=== PATIENT | male | born 1985 | race African-American/Black ===

== ENCOUNTER 2020-03-07 22:55 | Emergency (ER) | payer SELFPAY ==
[~2020-03-07] VITALS: Ht 185.4 cm; Wt 136.0 kg
[2020-03-07 22:55] VITALS: BP 181/105
[2020-03-07] MEDS ORDERED: methylPREDNISolone SOD SUCC PF 125 MG/2 ML VIAL. IM ONE (23:30)
[2020-03-07] MEDS ORDERED: diphenhydrAMINE 50 MG/ML VIAL IM ONE (23:30)
[2020-03-07] MEDS ORDERED: CEPHALEXIN 250 MG CAPSULE PO ONE (23:30)
[2020-03-07] MEDS ORDERED: KETOROLAC 60 MG/2 ML VIAL. IM ONE (23:30)
[2020-03-07] MEDS ORDERED: SMZ/TMP 800/160MG TABLET. PO ONE (23:30)
[2020-03-07] MEDS ORDERED: CEPH-264 PO (23:58)
[2020-03-07] MEDS ORDERED: SULF1TAB24 PO (23:58)
--- NOTE | 2020-03-07 23:59 | PHYS DOC ---
Past History Past Medical History: No Pertinent History Alcohol Use: Occasionally General Adult EDM: Chief Complaint: INSECT BITE HPI: HPI: Patient is a 34-year-old male who presented to ER today for evaluation of right elbow pain and swelling. He noticed about 4 days ago. Patient works as a branch coordinator, mowing lawn, woke up on Thursday morning noted a lesion on his right elbow, with swelling and pain. Patient denies any injury, no fever. Patient said the swelling got worse so he came in tonight. Patient denies any history of diabetes. Review of Systems: Review of Systems: Constitutional: Denies fever or chills Eyes: Denies change in visual acuity HENT: Denies nasal congestion or sore throat Respiratory: Denies cough or shortness of breath Cardiovascular: Denies chest pain or edema GI: Denies abdominal pain, nausea, vomiting, bloody stools or diarrhea : Denies dysuria Musculoskeletal: Denies back pain, positive for right elbow pain and swelling. Integument: Denies rash Neurologic: Denies headache, focal weakness or sensory changes Endocrine: Denies polyuria or polydipsia Lymphatic: Denies swollen glands Psychiatric: Denies depression or anxiety Heart Score: Risk Factors: Risk Factors: DM, Current or recent (<one month) smoker, HTN, HLP, family history of CAD, obesity. Risk Scores: Score 0 - 3: 2.5% MACE over next 6 weeks - Discharge Home Score 4 - 6: 20.3% MACE over next 6 weeks - Admit for Clinical Observation Score 7 - 10: 72.7% MACE over next 6 weeks - Early Invasive Strategies Current Medications: Current Meds: Current Medications Medications (Trade) Dose Ordered Sig/[place] Start Time Stop Time Status Last Admin Dose Admin Cephalexin HCl (Keflex) 1,000 mg 1X ONCE 03/07/20 23:30 03/07/20 23:31 DC 03/07/20 23:30 1,000 MG Diphenhydramine HCl (Benadryl) 50 mg 1X ONCE 03/07/20 23:30 03/07/20 23:31 DC 03/07/20 23:30 50 MG Ketorolac Tromethamine (Toradol Im) 60 mg 1X ONCE 03/07/20 23:30 03/07/20 23:31 DC 03/07/20 23:30 60 MG Methylprednisolone Sodium Succinate (SOLU-Medrol 125MG VIAL) 125 mg 1X ONCE 03/07/20 23:30 03/07/20 23:31 DC 03/07/20 23:30 125 MG Trimethoprim/ Sulfamethoxazole (Bactrim Ds) 1 tab 1X ONCE 03/07/20 23:30 03/07/20 23:31 DC 03/07/20 23:30 1 TAB Allergies: Allergies: Allergies Coded Allergies Type Severity Reaction Last Updated Verified No Known Drug Allergies 03/07/20 No Physical Exam: PE: Constitutional: Well developed, well nourished, no acute distress, non-toxic appearance. [] HENT: Normocephalic, atraumatic, bilateral external ears normal, oropharynx moist, no oral exudates, nose normal. [] Eyes: PERRLA, EOMI, conjunctiva normal, no discharge. [] Neck: Normal range of motion, no tenderness, supple, no stridor. [] Cardiovascular:Heart rate regular rhythm, no murmur [] Lungs & Thorax: Bilateral breath sounds clear to auscultation [] Abdomen: Bowel sounds normal, soft, no tenderness, no masses, no pulsatile masses. [] Skin: Warm, dry, no erythema, no rash. [] Back: No tenderness, no CVA tenderness. [] Extremities: The area of the back right elbow is swollen and tender with erythema, there is a necrotic lesion, no purulent discharge noted. Patient can move his right elbow in all direction only with pain, there is no obvious right elbow joint effusion noted on exam Neurologic: Alert and oriented X 3, normal motor function, normal sensory function, no focal deficits noted. [] Psychologic: Affect normal, judgement normal, mood normal. [] Current Patient Data: Vital Signs: Vital Signs Date Time Temp Pulse Resp B/P (MAP) Pulse Ox O2 Delivery O2 Flow Rate FiO2 03/07/20 22:55 98.8 98 18 181/105 (130) 99 Room Air EKG: EKG: [] Radiology/Procedures: Radiology/Procedures: [] Course & Med Decision Making: Course & Med Decision Making Pertinent Labs and Imaging studies reviewed. (See chart for details) Patient is a 33-year-old male who was evaluated in the ED today due to right elbow cellulitis, most likely caused by some form of insect bite because patient works outside. Patient was prescribed a Bactrim DS and Keflex combination. Patient was instructed to follow-up with family doctor in a couple day for reevaluation. Patient is amenable to plan of care. Brinda Disclaimer: Brinda Disclaimer: This electronic medical record was generated, in whole or in part, using a voice recognition dictation system. Departure Departure: Impression: Primary Impression: Cellulitis of right elbow Disposition: HOME/RESIDENCE PRIOR TO ADM Condition: STABLE Referrals: PCP,NO (PCP) follow up with your doctor in two days for reevaluation. Patient Instructions: Cellulitis Additional Instructions: Thank you for visiting our Emergency Department. We appreciate you trusting us with your care. If any additional problems come up don't hesitate to return to visit us. Please follow up with your primary care provider so they can plan additional care if needed and know about the problem that you had. If symptoms worsen come back to the Emergency Department. Any concerning symptoms that start such as chest pain, shortness of air, weakness or numbness on one side of the body, running high fevers or any other concerning symptoms return to the ER. Scripts Sulfamethoxazole/Trimethoprim (BACTRIM DS TABLET) 1 Each Tablet 1 TAB PO BID for cellulitis for 10 Days, #20 TAB 0 Refills Prov: SCOOBY SORTO DO 03/07/20 Cephalexin (KEFLEX) 500 Mg Capsule 1 CAP PO QID for cellulitis for 10 Days, #40 CAP 0 Refills Prov: SCOOBY SORTO DO 03/07/20 SCOOBY SORTO DO March 07, 2020 23:59
== END 2020-03-08 00:02 | disposition home or self-care (01) ==
LOC: ER 22:55
DX: L03.113 Cellulitis of right upper limb (principal)
CPT/HCPCS: 96372; 99284; J1200; J1885; J2930